=== PATIENT | male | born 1990 | race Hispanic/Latino ===

== ENCOUNTER 2022-11-26 23:36 | Emergency (ER) | payer OTHER ==
[2022-11-27] MEDS ORDERED: Acetaminophen 325 MG TAB ONE (00:39)
== END 2022-11-27 01:59 ==
LOC: CSHERS 23:36
DX: S02.2XXA Fracture of nasal bones, initial encounter for closed fracture (principal); Y04.2XXA Assault by strike against or bumped into by another person, initial encounter
CPT/HCPCS: 70450; 70486; 72125